=== PATIENT | female | born 1980 | race African-American/Black ===

== ENCOUNTER 2016-04-03 16:27 | Emergency (ER) | payer BC ==
[2014-04-17 05:26] VITALS: BMI 32.9
[~2016-04-03 16:27] MED LIST: EZFE 200200 MG PO; IBUPROFEN600 MG PO; PERCOCET 5-3251 TAB PO
== END 2016-04-03 19:30 | disposition home or self-care (01) ==
LOC: D.ER 16:27
DX: H66.91 Otitis media, unspecified, right ear (principal); I10 Essential (primary) hypertension

== ENCOUNTER → 2016-08-17 10:10 | Outpatient (CLI) | payer BC ==
[2014-04-17 05:26] VITALS: BMI 32.9
== END | disposition home or self-care (01) ==
LOC: D.US 10:10
DX: N63 Unspecified lump in breast (principal); E04.1 Nontoxic single thyroid nodule

== ENCOUNTER 2016-08-18 10:59 | Outpatient (CLI) | payer BC ==
[2014-04-17 05:26] VITALS: BMI 32.9
== END 2016-08-18 13:50 ==
LOC: D.MAMMO 10:59
DX: N63 Unspecified lump in breast (principal); E04.1 Nontoxic single thyroid nodule

== ENCOUNTER 2019-01-01 08:00 | Outpatient (CLI) | payer BC ==
[2014-04-17 05:26] VITALS: BMI 32.9
== END 2019-01-01 23:59 | disposition home or self-care (01) ==
LOC: D.MAMMO 08:00
PROVIDERS: ATTEND Family Medicine
DX: Z85.3 Personal history of malignant neoplasm of breast (principal)

== ENCOUNTER 2020-05-26 15:08 | Outpatient (CLI) | payer BC ==
[2014-04-17 05:26] VITALS: BMI 32.9
== END 2020-05-26 23:59 | disposition home or self-care (01) ==
LOC: D.MAMMO 15:08
PROVIDERS: ATTEND Internal Medicine Medical Oncology
DX: Z12.31 Encounter for screening mammogram for malignant neoplasm of breast (principal); C50.811 Malignant neoplasm of overlapping sites of right female breast